=== PATIENT | female | born 1935 | race Asian ===

== ENCOUNTER 2019-08-06 10:17 | Inpatient (IN) | payer OTHER, MEDICAID ==
[~2019-08-06] VITALS: Ht 157.5 cm; Wt 64.9 kg
--- NOTE | 2019-08-06 10:19 | NUR ---
Patient ambulated to bed 10. RN evaluating patient at bedside.
--- NOTE | 2019-08-06 10:20 | NUR ---
PT BROUGHT IN BY SON FROM HOME WITH C/O GENERALIZED WEAKNESS X1-2 MONTHS. PER SON, PT EATING APPROPRIATELY, USES WALKER AT HOME TO AMBULATE, INCONTINENT. PT IS ALERT TO SELF AND CAN OCCASIONALLY TELL PLACE. [facility]CS 14-CONFUSED BUT FOLLOWS COMMANDS. PUPILS PERRL. ABDOMEN SOFT AND ROUND. DENIES PAIN OR N/V/D AT THIS TIME. BED IS DOWN, LOCKED, BED RAIL X 2 PMH- DEMENTIA, DM
--- NOTE | 2019-08-06 10:22 | NUR ---
Dr. Madrigal is evaluating the patient at bedside.
[2019-08-06 10:27] VITALS: BP 154/82
--- NOTE | 2019-08-06 10:30 | NUR ---
ACCU CHECK 222
--- NOTE | 2019-08-06 10:35 | NUR ---
ASSISTANT ATHLETIC TRAINER AT BEDSIDE FOR BLOOD DRAW AND EMT AT BEDSIDE FOR EKG
--- NOTE | 2019-08-06 10:43 | NUR ---
XRAY AT BEDSIDE
--- NOTE | 2019-08-06 10:52 | NUR ---
20 G IV INSERTED. PT TOLERATED WELL
--- NOTE | 2019-08-06 11:00 | NUR ---
Note undone in EDM - 08/06/19 at 1104 by [email or web address] PT BROUGHT IN BY SON FROM HOME WITH C/O GENERALIZED WEAKNESS X1-2 MONTHS. PER SON, PT EATING APPROPRIATELY, USES WALKER AT HOME TO AMBULATE, INCONTINENT. PT IS ALERT TO SELF AND CAN OCCASIONALLY TELL PLACE. [facility]CS 14-CONFUSED BUT FOLLOWS COMMANDS. PUPILS PERRL. ABDOMEN SOFT AND ROUND. DENIES PAIN OR N/V/D AT THIS TIME. BED IS DOWN, LOCKED, BED RAIL X 2 PMH- DEMENTIA, DM
[2019-08-06 11:01] LABS: BASOPHILS % (AUTO) 0.1 % (0.0-2.0); EOSINOPHILS % (AUTO) 0.5 % (0.0-4.0); HEMATOCRIT 39.6 % (36-48); HEMOGLOBIN 13.2 g/dL (12.0-16.0); LYMPHOCYTES # (AUTO) 1.5 K/uL (2.5-16.5); LYMPHOCYTES % (AUTO) 16.7 % (20.5-51.1); MEAN CORPUSCULAR HEMOGLOBIN 34 pg (27-31); MEAN CORPUSCULAR HGB CONC 33 g/dL (33-37); MEAN CORPUSCULAR VOLUME 102.1 fL (80-94); MONOCYTES # (AUTO) 0.5 K/uL (0.8-1.0); MONOCYTES % (AUTO) 5.9 % (1.7-9.3); NEUTROPHILS # (AUTO) 6.8 K/uL (1.8-7.7); NEUTROPHILS % (AUTO) 76.8 % (42.2-75.2); PLATELET COUNT (AUTO) 248 K/uL (140-450); RED BLOOD CELL COUNT(AUTO) 3.89 MIL/uL (4.20-5.40); RED CELL DISTRIBUTION WIDTH 12.9 % (11.6-13.7); WHITE BLOOD COUNT (AUTO) 8.8 K/uL (4.8-10.8)
--- NOTE | 2019-08-06 11:12 | NUR ---
# 14 FR Urinary catheter inserted utilizing sterile technique BY STUDENTS AND INSTRUCTOR. Immediate return of 25 ml YELLOW urine noted. Urine sample collected and sent to lab.
--- NOTE | 2019-08-06 11:19 | NUR ---
[facility]
[2019-08-06 11:21] LABS: ANION GAP 14.8 (8-16); CARBON DIOXIDE 24.7 mmol/L (21-32); CHLORIDE 104 mmol/L (98-107); CREATININE 0.8 mg/dL (0.6-1.3); GLUCOSE 233 mg/dL (74-106); POTASSIUM 3.5 mmol/L (3.5-5.1); SODIUM SERUM 140 mmol/L (136-145); UREA NITROGEN, BLOOD 10 mg/dL (7-18)
--- NOTE | 2019-08-06 11:22 | NUR ---
PTS SON IS LEAVING AND TAKING PTS WALKER WITH HIM, NUMBER IS [phone]
[2019-08-06 11:26] LABS: PROTHROMBIN TIME 9.5 secs (10.8-13.4)
[2019-08-06 11:27] LABS: ALBUMIN 3.5 g/dL (3.4-5.0); ASPARTATE AMINOTRANSFERASE 17 U/L (15-37); TOTAL BILIRUBIN 0.5 mg/dL (0.0-1.0)
--- NOTE | 2019-08-06 11:30 | NUR ---
PT RETURNED FROM CT
--- NOTE | 2019-08-06 11:31 | NUR ---
ORAL TEMP 98.0
--- NOTE | 2019-08-06 11:42 | NUR ---
FAMILY AT BEDSIDE
[2019-08-06] MEDS ORDERED: METF1TER PO (11:55)
[2019-08-06] MEDS ORDERED: CITA-71 PO (11:55)
[2019-08-06] MEDS ORDERED: DEXL60EC PO (11:55)
[2019-08-06] MEDS ORDERED: SERT50TA PO (11:55)
[2019-08-06 12:13] LABS: APPEARANCE,URINE CLOUDY (CLEAR); BILIRUBIN,URINE NEGATIVE (NEGATIVE); BLOOD, URINE NEGATIVE (NEGATIVE); COLOR,URINE YELLOW (YELLOW); LEUKOCYTE ESTERASE ,URINE NEGATIVE (NEGATIVE); NITRITE, URINE POSITIVE (NEGATIVE); UGLUCOSE 3+ (NEGATIVE)
[2019-08-06 12:33] LABS: RBC,URINE 0-5 /HPF (0-5)
--- NOTE | 2019-08-06 12:39 | NUR ---
VS STABLE. PT ALERT AND RESPONSIVE TO NAME.
--- NOTE | 2019-08-06 12:56 | NUR ---
NO WOUNDS PRESENT UPON EXAMINATION
[2019-08-06] MEDS ORDERED: cefTRIAXone 1,000 MG VIAL ONE (13:02)
--- NOTE | 2019-08-06 13:25 | NUR ---
BLOOD CULTURES DRAWN BEDSIDE AND ROCEPHIN STARTED
[2019-08-06] MEDS ORDERED: ACETAMINOPHEN 325 MG TAB PO PRN (13:30)
[2019-08-06] MEDS ORDERED: ONDANSETRON 4 MG/2 ML VIAL IM/IVP PRN (13:30)
[2019-08-06] MEDS ORDERED: HYDROcodone/APAP 5/325 MG 1 TAB TAB PO PRN (13:30)
[2019-08-06] MEDS ORDERED: DOCUSATE SODIUM 100 MG GELCAP PO PRN (13:30)
--- NOTE | 2019-08-06 13:40 | NUR ---
ACCU CHECK IS 185
--- NOTE | 2019-08-06 13:43 | NUR ---
LAB AT BEDSIDE
--- NOTE | 2019-08-06 13:44 | NUR ---
NADR AT THIS TIME. PAIN 0/10
--- NOTE | 2019-08-06 14:15 | NUR ---
PATIENT WHEELED ONTO FLOOR VIA GURNEY. PATIENT TRANSFERRED TO BED. VS WNL. IV SITE INTACT, ASYMPTOMATIC AND SALINE LOCKED. RESPIRATIONS EVEN AND UNLABORED ON ROOM AIR. PATIENT SPEAKS SAMI ONLY, UPDATED BOARD. MRSA SCREENING DONE. SAFETY PRECAUTIONS IN PLACE, CALL LIGHT WITHIN REACH, WILL CONTINUE TO MONITOR PATIENT.
--- NOTE | 2019-08-06 14:18 | NUR ---
Patient will be admitted to care of DR JOYCE. Admited to [facility]. Will go to room 110B. Belongings list completed. Report to PAYAL GUILLERMO.
[2019-08-06 14:19] LABS: MAGNESIUM 1.4 mg/dL (1.8-2.4); PHOSPHORUS 3.3 mg/dL (2.5-4.9); THYROID STIMULATING HORMONE 1.41 uIU/mL (0.34-3.74)
[2019-08-06 14:20] VITALS: BP 145/85
--- NOTE | 2019-08-06 15:30 | NUR ---
[employer] ANALYTIC PROGRAMMER USED, ASHLI [id number] SCHOOL PSYCHOLOGIST USED TO DO ASSESSMENT. CALLED PATIENT'S SON SO THEY CAN TALK. PATIENT VERBALIZED UNDERSTANDING ABOUT PLAN OF CARE. SAFETY PRECAUTIONS IN PLACE, CALL LIGHT WITHIN REACH, WILL CONTINUE TO MONITOR PATIENT.
--- NOTE | 2019-08-06 15:40 | NUR ---
PATIENT PULLED OUT IV. CATHETER INTACT. MINIMAL BLEEDING NOTED. INFORMED PATIENT OF NEED FOR NEW IV, PATIENT VERBALIZED UNDERSTANDING.
[2019-08-06] MEDS ORDERED: DEXTROSE 50% 50 ML SYR IVP PRN (15:45)
[2019-08-06 16:00] VITALS: BP 142/80
--- NOTE | 2019-08-06 16:40 | NUR ---
PATIENT ATTEMPTED TO GET OUT OF BED, USED [employer], MIN [id number] SHED HAND, INFORMED PATIENT FOR NEED TO STAY IN HOSPITAL BECAUSE OF INFECTION. PATIENT VERBALIZED UNDERSTANDING. PATIENT ALSO AGREED TO IV ACCESS. HOWEVER, AFTER SPEAKING TO AIRCRAFT INSTRUMENT MECHANIC, PATIENT AGAIN REFUSED.
[2019-08-06] MEDS: BLOOD GLUCOSE MONITORING 1 DEV DEV FS SCH ×2 (17:45→21:50)
--- NOTE | 2019-08-06 17:45 | NUR ---
DR BEGUM IN TO SEE THE PATIENT. DAUGHTER IN LAW FABIOLA AT BEDSIDE. IV ACCESS AND ANTIBIOTICS WERE REINFORCED TO PATIENT. SHE VERBALIZED UNDERSTANDING AND AGREED FOR IV INSERTION. VIJAY GUILLERMO INSERTED NEW IV, RIGHT HAND 24G, PATIENT TOLERATED IT WELL. WILL CONTINUE TO MONITOR PATIENT.
[2019-08-06] MEDS: NACL 0.9% 1,000 ML IV SCH (18:00)
[2019-08-06] MEDS: INSULIN LISPRO SLIDING SCALE 100 UNITS/ML VIAL SUBQ PRN ×2 (18:06→21:55)
--- NOTE | 2019-08-06 18:06 | NUR ---
BLOOD SUGAR 168, COVERAGE GIVEN. PATIENT TOLERATED IT WELL. DAUGHTER IN LAW FABIOLA AT BEDSIDE TO ASSIST. SAFETY PRECAUTIONS IN PLACE, CALL LIGHT WITHIN REACH, WILL CONTINUE TO MONITOR PATIENT.
--- NOTE | 2019-08-06 19:05 | NUR ---
INFORM DR. JASSO ABOUT PATIENT'S MAG LEVEL OF 1.4 AND DAUGHTER'S IN LAW WISH FOR PNA AND FLU VACCINE UPON DISCHARGE.
[2019-08-06] MEDS ORDERED: PNEUMOCOCCAL VACCINE 23 MCG/0.5 ML VIAL IMVAC SCH (19:25)
[2019-08-06] MEDS ORDERED: INFLUENZA VACCINE QUAD 0.5 ML SYR IMVAC PRN (19:25)
[2019-08-06] MEDS ORDERED: MAG SULF 2000 MG/WATER PREMIX 50 ML IV ONE (19:25)
--- NOTE | 2019-08-06 19:25 | NUR ---
REPORT GIVEN TO WELDER/INSTALLER NURSE AT BEDSIDE FOR CONTINUITY OF CARE. PATIENT IN STABLE CONDITION AND RESTING WITH EYES CLOSED.
--- NOTE | 2019-08-06 19:26 | NUR ---
RECEIVED BEDSIDE REPORT FROM AM SHIFT NURSE. PATIENT IS LYING IN BED AWAKE AND ALERT. NO SOB OR DISTRESS NOTED. ON ROOM AIR.IV ACCESS ON RIGHT HAND 24 GAUGE, PATENT AND INTACT. INITIAL ASSESSMENT DONE. BED IN LOW. SAFETY MEASURES IN PLACE. BOARD UPDATED. CALL LIGHT PLACED WITHIN PATIENT REACH. WILL CONTINUE TO MONITOR PATIENT.
--- NOTE | 2019-08-06 21:50 | NUR ---
BLOOD GLUCOSE RESULT OF 156 WITH 2 UNITS OF REGULAR INSULIN GIVEN PER SLIDING SCALE. WILL CONTINUE TO MONITOR PATIENT.
--- NOTE | 2019-08-06 23:40 | NUR ---
ROUNDS DONE. VISIBLE CHEST RISE AND FALL NOTED. SAFETY MEASURES IN PLACE. WILL CONTINUE TO MONITOR PATIENT.
--- NOTE | 2019-08-07 00:05 | NUR ---
VITAL SIGNS TAKEN AT THIS TIME. NO DISTRESS NOTED. WILL CONTINUE TO MONITOR PATIENT.
[2019-08-07 00:17] VITALS: BP 149/64
[2019-08-07] MEDS: MELATONIN 3 MG TAB PO PRN (00:48)
--- NOTE | 2019-08-07 02:28 | NUR ---
ROUNDS DONE. VISIBLE CHEST RISE AND FALL NOTED. CALL LIGHT WITHIN PATIENT REACH. WILL CONTINUE TO MONITOR PATIENT.
--- NOTE | 2019-08-07 05:16 | NUR ---
ROUNDS DONE. VISIBLE CHEST RISE AND FALL NOTED. WILL CONTINUE TO MONITOR PATIENT.
[2019-08-07] MEDS: NACL 0.9% 1,000 ML IV SCH ×2 (05:30→22:49)
--- NOTE | 2019-08-07 06:31 | NUR ---
BLOOD GLUCOSE RESULT OF 121. NO UNITS OF INSULIN COVERAGE NEEDED.
[2019-08-07] MEDS: PANTOPRAZOLE 40 MG TABEC PO SCH (06:55)
[2019-08-07] MEDS: BLOOD GLUCOSE MONITORING 1 DEV DEV FS SCH ×4 (06:59→20:22)
--- NOTE | 2019-08-07 07:17 | NUR ---
PT IN STABLE CONDITION. CALL LIGHT WITHIN PATIENT REACH. ENDORSED TO BRENDA FOR CONTINUITY OF CARE.
--- NOTE | 2019-08-07 07:19 | NUR ---
RECEIVED BEDSIDE REPORT FROM ACCOUNTING BOOKKEEPER NURSE FOR CONTINUITY OF CARE. PATIENT IS AWAKE AND RESTING ON BED AT THIS TIME. PATIENT IS AAOX1-2, SPEAKS NEPALI ONLY. RESPIRATION EVEN AND UNLABORED ON RA. FLACC 0. NO SIGNS OF DISTRESS NOTED. IV ON R HAND 24G, CLEAN AND INTACT, INFUSING PER MD ORDER. PATIENT IS INCONTINENT AND BEDREST AT THIS TIME DUE TO WEAKNESS. SKIN CLEAN AND DRY. SAFETY MEASURES IN PLACE. BED IN LOW POSITION AND CALL LIGHT WITHIN REACH. FALL RISK PROTOCOL IN PLACE AND BED ALARM ACTIVATED.
[2019-08-07] MEDS: metFORMIN 500 MG TAB PO SCH (07:55)
--- NOTE | 2019-08-07 07:59 | NUR ---
ADMINISTERED MEDS PER MD ORDER, PATIENT TOLERATED WELL. MEDS ED PROVIDED TO PATIENT AND DAUGHTER IN LAW MAHNAZ BY BEDSIDE. PATIENT AWAKE AND TALKING TO MAHNAZ BY BEDSIDE. NO SIGNS OF DISTRESS NOTED. SAFETY MEASURES IN PLACE. BED ALARM ACTIVATED.
[2019-08-07 08:00] VITALS: BP 128/62
[2019-08-07 08:23] LABS: CHOL/HDL RATIO 4.5 (1-4.5)
[2019-08-07] MEDS: CITALOPRAM 20 MG TAB PO SCH (08:52)
--- NOTE | 2019-08-07 08:52 | NUR ---
ADMINISTERED MED PER MD ORDER, PATIENT TOLERATED WELL. MED ED PROVIDED TO PATIENT AND REINFORCEMENT NEEDED. PATIENT AWAKE AND RESTING ON BED. FLACC 0. RESPIRATION EVEN AND UNLABORED ON RA. NO SIGNS OF DISTRESS NOTED. SAFETY MEASURES IN PLACE. BED IN LOW POSITION AND CALL LIGHT WITHIN REACH. FALL RISK PROTOCOL IN PLACE AND BED ALARM ACTIVATED. DEMONSTRATED TO PATIENT ON HOW TO USE THE CALL LIGHT FOR ANY ASSISTANCE AND PATIENT ABLE TO RETURN DEMONSTRATION.
--- NOTE | 2019-08-07 09:02 | NUR ---
PATIENT HAS BEEN SCREENED AND CATEGORIZED MODERATE NUTRITION RISK. PATIENT WILL BE SEEN WITHIN 3-5 DAYS OF ADMISSION. 08/09/19 08/11/[address]
--- NOTE | 2019-08-07 09:45 | NUR ---
PATIENT AWAKE AND RESTING ON BED AT THIS TIME. FLACC 0. NO SIGNS OF DISTRESS NOTED. SAFETY MEASURES IN PLACE. BED IN LOW POSITION AND CALL LIGHT WITHIN REACH. FALL RISK PROTOCOL IN PLACE AND BED ALARM ACTIVATED.
--- NOTE | 2019-08-07 11:50 | NUR ---
PATIENT IS RESTING ON BED AT THIS TIME. RESPIRATION EVEN AND UNLABORED ON RA. NO SIGNS OF DISTRESS NOTED. SAFETY MEASURES IN PLACE. BED IN LOW POSITION AND CALL LIGHT WITHIN REACH. BED ALARM ACTIVATED.
--- NOTE | 2019-08-07 12:37 | NUR ---
PATIENT ASLEEP IN BED. RESPONSIVE TO VERBAL AND TACTILE STIMULI. NO COMPLAINTS OR CONCERNS AT THIS TIME. RESPIRATIONS EVEN AND UNLABORED WITH NO SOB OR RESPIRATORY DISTRESS. SKIN WARM AND DRY TO TOUCH. SAFETY MEASURES: HOB ELEVATED, BED IN LOWEST POSITION, BED ALARM ACTIVATED, AND CALL LIGHT WITHIN REACH. WILL CONTINUE TO MONITOR.
--- NOTE | 2019-08-07 13:45 | NUR ---
PATIENT RESTING IN BED WITH THE TV ON. RESPIRATIONS EVEN AND UNLABORED WITH NO SOB OR RESPIRATIONS. FLACC 0. SAFETY MEASURES IN PLACE. BED IN LOW POSITION AND CALL LIGHT WITHIN REACH. BED ALARM ACTIVATED.
--- NOTE | 2019-08-07 14:30 | NUR ---
PATIENT ASLEEP IN BED. RESPONSIVE TO VERBAL AND TACTILE STIMULI. RESPIRATIONS EVEN AND UNLABORED WITH NO SOB OR RESPIRATORY DISTRESS. SAFETY MEASURES IN PLACE. WILL CONTINUE TO MONITOR.
--- NOTE | 2019-08-07 15:14 | NUR ---
DISCHARGE PLANNING: RECEIVED AN ORDER FOR SNF EVALUATION FOR PT. REFERRAL SENT TO [facility] [place] RE: [facility] PROGRAM. Addendum: 08/07/19 at 1711 by Erica Kauffman PER MICHAELA OF [facility] [place] THEIR [facility] LIAISON HAS ALREADY SPOKEN TO THE FAMILY AND THEY ARE ABLE TO ACCEPT THE PATIENT. DR. BEGUM MADE AWARE. PER DR. BEGUM DC PLAN WILL BE ON TUESDAY. MICHAELA CHAVIRA [facility] [place] MADE AWARE. Addendum: 08/08/19 at 1048 by Fidelia Romero CM DC PLANNING: PER ORDER PT SCHEDULE TO BE DISCHARGE ON TUESDAY TO [facility] [place] FOR PHYSICAL THERAPY AND SINCE PT IS SWEDISH SPEAKING ONLY PT WILL BE BENEFIT FROM THE [facility] PROGRAM. FAMILY AGREED TO GO TO [facility] [place] . SPOKE WITH MICHAELA FROM [facility] [place] AND ACCEPTED PATIENT. REGINO TO FOLLOW
--- NOTE | 2019-08-07 15:20 | NUR ---
PATIENT RESTING IN BED. ASSISTED SCHOOL PSYCHOLOGIST ASSISTANT WITH CHANGING AND REPOSITIONING PATIENT. RESPIRATIONS EVEN AND UNLABORED WITH NO SOB OR RESPIRATORY DISTRESS. SKIN WARM AND DRY. SAFETY MEASURES: HOB ELEVATED, BED IN LOWEST POSITION, BED ALARM ACTIVATED, AND CALL LIGHT WITHIN REACH.
[2019-08-07 16:00] VITALS: BP 149/66
--- NOTE | 2019-08-07 16:19 | NUR ---
Fashion Journalist Note: Per Grace from [facility] , patient has been accepted and can be transfer to their facility upon discharge, room 31B, accepting physician is Misael Montoya. I called and spoke with patient's son Andrea Espinal , I informed him patient has been accepted at [facility]. He verbalized understanding and thanked me for my assistance.
--- NOTE | 2019-08-07 17:33 | NUR ---
PATIENT PULLED OUT HER IV. ASSESSED IV SITE, NO BLEEDING. IV CANNULA INTACT. WILL RESTART NEW IV. EDUCATION PROVIDED TO PATIENT AND ORIENTED PATIENT. NO SIGNS OF DISTRESS NOTED. SAFETY MEASURES IN PLACE. BED ALARM ACTIVATED.
--- NOTE | 2019-08-07 17:58 | NUR ---
RESTARTED IV ON R HAND 24G, PATIENT TOLERATED WELL. SECURED WITH KERLIX AND CONTINUE WITH IVF. PATIENT IS EATING DINNER AT THIS TIME. NO SIGNS OF DISTRESS NOTED. EDUCATED PATIENT NOT TO REMOVE HER IV. SAFETY MEASURES IN PLACE. BED IN LOW POSITION AND CALL LIGHT WITHIN REACH. BED ALARM ACTIVATED.
--- NOTE | 2019-08-07 18:39 | NUR ---
PATIENT AWAKE AND RESTING ON BED AT THIS TIME. FLACC 0. RESPIRATION EVEN AND UNLABORED ON RA. NO SIGNS OF DISTRESS NOTED. SAFETY MEASURES IN PLACE. BED IN LOW POSITION AND CALL LIGHT WITHIN REACH. BED ALARM ACTIVATED.
--- NOTE | 2019-08-07 19:15 | NUR ---
ENDORSED PATIENT AT BEDSIDE TO RIVER EXPEDITION GUIDE NURSE FOR CONTINUITY OF CARE. PATIENT AWAKE AND HOUSE SUPERINTENDENT IS CHANGING AND CLEANING PATIENT. NO SIGNS OF DISTRESS NOTED. PATIENT IS IN STABLE CONDITION. SAFETY MEASURES IN PLACE.
--- NOTE | 2019-08-07 19:16 | NUR ---
RECEIVED BEDSIDE REPORT FROM DAY RN PATIENT IS AWAKE AND RESTING ON BED AT THIS TIME. PATIENT IS AAOX1-2, SPEAKS PORTUGUESE ONLY. RESPIRATION EVEN AND UNLABORED ON RA. FLACC 0. NO SIGNS OF DISTRESS NOTED. IV ON R HAND 24G, CLEAN AND INTACT, INFUSING PER MD ORDER. PATIENT IS INCONTINENT AND BEDREST AT THIS TIME DUE TO WEAKNESS. SKIN CLEAN AND DRY. SAFETY MEASURES IN PLACE. BED IN LOW POSITION AND CALL LIGHT WITHIN REACH. FALL RISK PROTOCOL IN PLACE AND BED ALARM ACTIVATED.
[2019-08-07] MEDS: INSULIN LISPRO SLIDING SCALE 100 UNITS/ML VIAL SUBQ PRN (20:22)
--- NOTE | 2019-08-07 20:22 | NUR ---
BLOOD SUGAR IS 165 COVERAGE PER ORDERS AND MARIO MEDICATION GIVEN. DAUGHTER IN LAW AT BEDSIDE. PT IS CALM. POC DISCUSSED WITH FAMILY AND PT. SAFETY MEASURES ARE IN PLACE.
--- NOTE | 2019-08-07 21:30 | NUR ---
ENDORSED TO MARI AND JEAN. PT IS IN STABLE CONDITION.
--- NOTE | 2019-08-07 22:00 | NUR ---
RECEIVED FROM ANOTHER RN IN BED. PT. SPEAKS MONGOLIAN WITH A LITTLE OF FAROESE. PT. WITH HISTORY DEMENTIA. NOTED TO BE PULING OUT HER IVF TUBING MOST OF TIMES. REFUSED TO LISTEN. FAMILY MEMBER IN HERE EARLIER THIS SHIFT. NEEDS WILL BE ANTICIPATED AND WILL BE MET. TOTAL CARE RT DEMENTIA. NEW IVF LINE INSERTED TO LEFT HAND #22. TOLERATED WELL . GOOD BLOOD RETURN.
[2019-08-08] VITALS: BP 151/67
[2019-08-08] MEDS: MELATONIN 3 MG TAB PO PRN ×2 (02:58→20:59)
--- NOTE | 2019-08-08 03:01 | NUR ---
PT. STILL AWAKE AND CUT HER IVF TUBING AT THIS TIME. REPLACED IVF TUBING. PROVIDED WITH APPLE JUICE . WILL BE CHECKED FREQUENTLY.
[2019-08-08] MEDS: BLOOD GLUCOSE MONITORING 1 DEV DEV FS SCH ×4 (05:10→21:01)
[2019-08-08] MEDS: PANTOPRAZOLE 40 MG TABEC PO SCH (05:12)
[2019-08-08] MEDS: INSULIN LISPRO SLIDING SCALE 100 UNITS/ML VIAL SUBQ PRN ×2 (05:14→20:30)
[2019-08-08 06:21] LABS: BASOPHILS % (AUTO) 0.4 % (0.0-2.0); EOSINOPHILS # (AUTO) 0.1 K/uL (0-0.4); EOSINOPHILS % (AUTO) 1.2 % (0.0-4.0); HEMATOCRIT 37.9 % (36-48); HEMOGLOBIN 12.6 g/dL (12.0-16.0); LYMPHOCYTES # (AUTO) 1.2 K/uL (2.5-16.5); LYMPHOCYTES % (AUTO) 28.1 % (20.5-51.1); MEAN CORPUSCULAR HEMOGLOBIN 34 pg (27-31); MEAN CORPUSCULAR HGB CONC 33 g/dL (33-37); MEAN CORPUSCULAR VOLUME 101.3 fL (80-94); MONOCYTES # (AUTO) 0.3 K/uL (0.8-1.0); MONOCYTES % (AUTO) 6.8 % (1.7-9.3); NEUTROPHILS # (AUTO) 2.8 K/uL (1.8-7.7); NEUTROPHILS % (AUTO) 63.5 % (42.2-75.2); PLATELET COUNT (AUTO) 239 K/uL (140-450); RED BLOOD CELL COUNT(AUTO) 3.74 MIL/uL (4.20-5.40); RED CELL DISTRIBUTION WIDTH 12.8 % (11.6-13.7); WHITE BLOOD COUNT (AUTO) 4.4 K/uL (4.8-10.8)
--- NOTE | 2019-08-08 06:23 | NUR ---
SLEEPING AT THIS TIME. WAKES UP EASILY WHEN TOUCHED. ABLE TO VERBALIZE WELL IN OCCITAN AND A LITTLE POLISH. NO RESTLESSNESS.
[2019-08-08 06:25] LABS: ANION GAP 13.5 (8-16); CARBON DIOXIDE 26.1 mmol/L (21-32); CHLORIDE 105 mmol/L (98-107); CREATININE 0.5 mg/dL (0.6-1.3); GLUCOSE 171 mg/dL (74-106); POTASSIUM 3.6 mmol/L (3.5-5.1); SODIUM SERUM 141 mmol/L (136-145); UREA NITROGEN, BLOOD 4 mg/dL (7-18)
--- NOTE | 2019-08-08 07:49 | NUR ---
RECEIVED BEDSIDE REPORT FROM TRACK INSPECTING SUPERVISOR RN. PATIENT IS AWAKE AND RESTING ON BED AT THIS TIME. PATIENT IS AAOX1-2, SPEAKS GEORGIAN BUT UNDERSTANDS SOME UKRAINIAN. RESPIRATIONS EVEN AND UNLABORED ON RA. FLACC 0. NO SIGNS OF DISTRESS NOTED. IV ON R HAND 24G, CLEAN AND INTACT, INFUSING PER MD ORDER. PATIENT IS INCONTINENT AND BEDREST AT THIS TIME DUE TO WEAKNESS. SKIN CLEAN AND DRY. SAFETY MEASURES IN PLACE. BED IN LOW POSITION AND CALL LIGHT WITHIN REACH. FALL RISK PROTOCOL IN PLACE AND BED ALARM ACTIVATED. WILL ROUND FREQUENTLY ON PT. BED IN LOW POSITION, CALL LIGHT WITHIN REACH.
[2019-08-08 08:00] VITALS: BP 162/77
--- NOTE | 2019-08-08 09:45 | NUR ---
ADMINISTERED MORNING MEDS TO PT. PT TOLERATED WELL. PT WILL NOT KEEP IV INSERTED SO SPOKE WITH SINCE PT HAS IV ROCEPHIN DUE. PER ORDERS, OK FOR PT TO NOT HAVE IV AND HE PRESCRIBED IM ROCEPHIN TO PT. PT TOLERATED WELL. ALL NEEDS MET. WILL CONTINUE TO ROUND FREQUENTLY ON PT.
[2019-08-08] MEDS: CITALOPRAM 20 MG TAB PO SCH (09:50)
[2019-08-08] MEDS: metFORMIN 500 MG TAB PO SCH (09:50)
[2019-08-08] MEDS ORDERED: cefTRIAXone 1,000 MG in LIDOCAINE MPF 1% 2.1 ML IM SCH (10:00)
--- NOTE | 2019-08-08 11:34 | NUR ---
PT RESTING IN BED. ALL NEEDS MET. WILL CONTINUE TO ROUND FREQUENTLY ON PT. BED IN LOW POSITION, CALL LIGHT WITHIN REACH.
--- NOTE | 2019-08-08 13:41 | NUR ---
PT RESTING IN BED. ALL NEEDS MET. WILL CONTINUE TO ROUND FREQUENTLY ON PT. BED IN LOW POSITION, CALL LIGHT WITHIN REACH.
[2019-08-08] MEDS: NACL 0.9% 1,000 ML IV SCH (15:29)
--- NOTE | 2019-08-08 15:36 | NUR ---
PT SLEEPING. ALL NEEDS MET. WILL CONTINUE TO ROUND FREQUENTLY ON PT. BED IN LOW POSITION, CALL LIGHT WITHIN REACH.
[2019-08-08 16:00] VITALS: BP 138/72
--- NOTE | 2019-08-08 19:25 | NUR ---
RECEIVED PT ON BED, AAOX2, SYRIAC SPEAKING BUT CAN UNDERSTAND A LITTLE SOUTH AFRICAN, PT CONFUSED SEC TO HX OF DEMENTIA, NO IV LINE DUE TO PT PULLING OFF IV LINE MULTIPLE TIMES, DRS ARE AWARE, DENIES PAIN, NO SOB NOTED, ON FALL PRECAUTION WITH SIDE RAILS UP AND BED ALARM ON, CALL LIGHT WITHIN REACH.
--- NOTE | 2019-08-08 19:49 | NUR ---
ENDORSED PT TO COMMERCIAL MAINTENANCE TECHNICIAN FOR CONTINUITY OF CARE. PT N STABLE CONDITION AT THIS TIME.
--- NOTE | 2019-08-08 20:00 | NUR ---
PT SEEN TRYING TO GET OOB MULTIPLE TIMES, WILL COMPLY ONLY FOR A SHORT WHILE THEN TRY TO GET OOB AGAIN, LEORA MOCTEZUMA PUT PT ON WHEELCHAIR AND BROUGHT CLOSE TO NURSES STATION FOR CLOSE MONITORING.
--- NOTE | 2019-08-08 21:00 | NUR ---
BLOOD SUGAR CHECKED WITH 258 RESULT, COVERAGE GIVEN, DUE MEDICATION ADMINISTERED, ALL NEEDS ATTENDED.
--- NOTE | 2019-08-08 21:40 | NUR ---
PT ASSISTED BACK TO BED AFTER RECEIVING MELATONIN PO PRN, SIDE RAILS UP AND BED ALARM ON, MONITORED CLOSELY.
[2019-08-09] VITALS: BP 116/63
--- NOTE | 2019-08-09 | NUR ---
PT SLEEPING, EASILY AROUSABLE, VITAL SIGNS STABLE, DENIES ANY PAIN, PROVIDED WITH APPLE JUICE X1, TOLERATED WELL, ON FALL PRECAUTION, FREQUENT CHECKS MADE, CONTINUE TO MONITOR CLOSELY.
--- NOTE | 2019-08-09 03:00 | NUR ---
PT SLEEPING, VISIBLE CHEST RISE AND FALL, NO DISTRESS NOTED, BED ALARM ON.
[2019-08-09] MEDS ORDERED: MAGNESIUM OXIDE 400 MG TAB ONE (12:23)
[2019-08-09] MEDS ORDERED: PNEUMOCOCCAL VACCINE 23 MCG/0.5 ML VIAL ONE (12:23)
[2019-08-10 20:11] LABS: CHLORIDE 103 mmol/L (98-107); CREATININE 0.6 mg/dL (0.6-1.3); GLUCOSE 180 mg/dL (74-106); MAGNESIUM 1.7 mg/dL (1.8-2.4); SODIUM SERUM 141 mmol/L (136-145); UREA NITROGEN, BLOOD 7 mg/dL (7-18)
[2019-08-11 10:37] LABS: BASOPHILS % (AUTO) 0.3 % (0.0-2.0); EOSINOPHILS # (AUTO) 0.1 K/uL (0-0.4); EOSINOPHILS % (AUTO) 1.5 % (0.0-4.0); HEMATOCRIT 39.2 % (36-48); HEMOGLOBIN 13.1 g/dL (12.0-16.0); LYMPHOCYTES # (AUTO) 1.4 K/uL (2.5-16.5); LYMPHOCYTES % (AUTO) 31.9 % (20.5-51.1); MEAN CORPUSCULAR HEMOGLOBIN 34 pg (27-31); MEAN CORPUSCULAR HGB CONC 33 g/dL (33-37); MEAN CORPUSCULAR VOLUME 101.5 fL (80-94); MONOCYTES # (AUTO) 0.3 K/uL (0.8-1.0); MONOCYTES % (AUTO) 7.9 % (1.7-9.3); NEUTROPHILS # (AUTO) 2.5 K/uL (1.8-7.7); NEUTROPHILS % (AUTO) 58.4 % (42.2-75.2); PLATELET COUNT (AUTO) 257 K/uL (140-450); RED BLOOD CELL COUNT(AUTO) 3.86 MIL/uL (4.20-5.40); WHITE BLOOD COUNT (AUTO) 4.4 K/uL (4.8-10.8)
== END 2019-08-09 14:05 | disposition home or self-care (01) | DRG 71 ==
LOC: MED 10:17 → MTU 13:29
PROVIDERS: ADMIT General Practice; ATTEND General Practice
DX: G93.41 Metabolic encephalopathy (principal); D68.59 Other primary thrombophilia; F03.90 Unspecified dementia, unspecified severity, without behavioral disturbance, psychotic disturbance, mood disturbance, and anxiety; F32.9 Major depressive disorder, single episode, unspecified; D72.819 Decreased white blood cell count, unspecified; I10 Essential (primary) hypertension; E78.5 Hyperlipidemia, unspecified; E11.9 Type 2 diabetes mellitus without complications; K21.9 Gastro-esophageal reflux disease without esophagitis; Z79.899 Other long term (current) drug therapy
CPT/HCPCS: 36415; 70450; 71045; 80048; 80053; 81001; 82140; 82948; 83036; 83605; 83735; 83880; 84100; 84436; 84443; 84484; 85025; 85610; 85730; 87040; 87081; 90732; 93005; 96365; 97110; 97112; 97116; 97161-GP; 97530; 99285; J0696; J1644; J1815; J2001; J3475; J7060; Q0092

== ENCOUNTER 2019-08-19 13:48 | Inpatient (IN) | payer OTHER, MEDICAID ==
[~2019-08-19] VITALS: Ht 157.5 cm; Wt 58.1 kg
[~2019-08-19 13:48] MED LIST: CITA-71 PO; DEXL60EC PO; METF1TER PO; SERT50TA PO
[2019-08-19 13:49] VITALS: BP 132/62
--- NOTE | 2019-08-19 14:08 | NUR ---
GREGORY [place] [facility] HIP PAIN S/P FALL LAST NIGHT UNKNOWN TIME. SNF STAFF FOUND PT LEANING OVER BED. PT WAS ABLE TO TRANSFER W/ 2-PERSON ASSIST FROM [facility] TO [facility]. TRANSFERRED HERE FOR CT SCAN FOR EVAL OF POSSIBLE LT HIP FX. USED [employer] [id number] TO TRANSLATE, PT IS TURKMEN SPEAKING ONLY. PT STATES SHE DID FALL LAST NIGHT, DENIES HITTING HEAD, STATES DID LOSE CONSCIOUSNESS FOR UNK LENGTH OF TIME BUT STATES "I WOKE UP RIGHT AFTER". DENIES PAIN AT THIS TIME. DENIES ANY DISCOMFORT. OFFERED TO CALL FAMILY/FRIEND, PT REFUSED AT THIS TIME. HX- HTN, HF, DEMENTIA, DM, MET ENCEPHALOPATHY, GERD, DEPRESSION.
--- NOTE | 2019-08-19 14:25 | NUR ---
SPO[place] [facility] INFORM HER THAT PT POLST IS NOT SIGNED BY A PHYSICIAN, THEREFORE AT THIS TIME WE ARE OBLIGATED TO TREAT HER A FULL CODE AND PROVIDE LIFE SAVING INTERVENTION IN THE EVENT THAT IT IS NEEDED. MAYRA STATES THAT SHE UNDERSTANDS AND WILL CONTACT THE PATIENTS PCP IN THE MEANTIME.
--- NOTE | 2019-08-19 14:28 | NUR ---
[facility]
[2019-08-19] MEDS ORDERED: NACL 0.9% 500 ML IV SCH (14:30)
--- NOTE | 2019-08-19 15:15 | NUR ---
PT IS REFUSING CHEST XRAY, DR. MELGAR AWARE
--- NOTE | 2019-08-19 15:15 | NUR ---
Note danay in EDM - 08/19/19 at 1520 by [email or web address] # 16 FR IN/OUT catheter utilizing sterile technique. Immediate return of 100 ml CLEAR YELLOW urine noted. Urine sample collected and sent to lab. Pt tolerated procedure WELL.
[2019-08-19 15:27] LABS: BASOPHILS % (AUTO) 0.3 % (0.0-2.0); EOSINOPHILS % (AUTO) 0.9 % (0.0-4.0); HEMATOCRIT 40.5 % (36-48); HEMOGLOBIN 13.3 g/dL (12.0-16.0); LYMPHOCYTES # (AUTO) 1.8 K/uL (2.5-16.5); LYMPHOCYTES % (AUTO) 33.5 % (20.5-51.1); MEAN CORPUSCULAR HEMOGLOBIN 33 pg (27-31); MEAN CORPUSCULAR HGB CONC 33 g/dL (33-37); MEAN CORPUSCULAR VOLUME 102.1 fL (80-94); MONOCYTES # (AUTO) 0.3 K/uL (0.8-1.0); MONOCYTES % (AUTO) 6.1 % (1.7-9.3); NEUTROPHILS # (AUTO) 3.2 K/uL (1.8-7.7); NEUTROPHILS % (AUTO) 59.2 % (42.2-75.2); PLATELET COUNT (AUTO) 311 K/uL (140-450); RED BLOOD CELL COUNT(AUTO) 3.97 MIL/uL (4.20-5.40); WHITE BLOOD COUNT (AUTO) 5.5 K/uL (4.8-10.8)
[2019-08-19 15:39] LABS: APPEARANCE,URINE CLEAR (CLEAR); BILIRUBIN,URINE NEGATIVE (NEGATIVE); BLOOD, URINE NEGATIVE (NEGATIVE); COLOR,URINE YELLOW (YELLOW); LEUKOCYTE ESTERASE ,URINE NEGATIVE (NEGATIVE); NITRITE, URINE NEGATIVE (NEGATIVE); PH,URINE 5.5 (5.0-9.0); UGLUCOSE 3+ (NEGATIVE)
[2019-08-19 15:56] LABS: ALBUMIN 3.5 g/dL (3.4-5.0); ANION GAP 12.9 (8-16); ASPARTATE AMINOTRANSFERASE 22 U/L (15-37); CARBON DIOXIDE 28.2 mmol/L (21-32); CHLORIDE 101 mmol/L (98-107); CREATININE 0.6 mg/dL (0.6-1.3); GLUCOSE 305 mg/dL (74-106); POTASSIUM 4.1 mmol/L (3.5-5.1); SODIUM SERUM 138 mmol/L (136-145); TOTAL BILIRUBIN 0.3 mg/dL (0.0-1.0); UREA NITROGEN, BLOOD 13 mg/dL (7-18)
--- NOTE | 2019-08-19 16:20 | NUR ---
PT RESTING IN BED WITH EYES CLOSED, AROUSABLE TO VERBAL STIMULI.
[2019-08-19 16:31] LABS: PROTHROMBIN TIME 8.7 secs (10.8-13.4)
[2019-08-19] MEDS ORDERED: INSULIN REGULAR, HUMAN 100 UNIT/ML VIAL IV ONE (17:15)
--- NOTE | 2019-08-19 17:31 | NUR ---
PT WILL RETURN TO [facility]. TRANSPORT WILL ARRIVE AROUND 1030 PM
--- NOTE | 2019-08-19 17:57 | NUR ---
SPOKE WITH KIMBERLYN FROM [facility] AND GAVE REPORT FOR THE PATIENT TO RETURN TO THE FACILITY.
--- NOTE | 2019-08-19 18:29 | NUR ---
ORDERED PT A DINNER TRAY, SHE IS NOT HUNGRY RIGHT NOW
--- NOTE | 2019-08-19 19:27 | NUR ---
RECEIVED REPORT FROM EAGLE PATTON.
--- NOTE | 2019-08-19 20:20 | NUR ---
Note danay in EDM - 08/20/19 at 0443 by AREN Patient will be admitted to care of [facility]. Admited to TELE Will go to room. Belongings list completed. Report to EAGLE KAPADIA.
--- NOTE | 2019-08-19 20:20 | NUR ---
Patient will be admitted to care of [facility]. Admited to TELE Will go to room 108 A. [facility]s list completed. Report to . Addendum: 08/20/19 at 0445 by AREN REPORT GIVEN TO EAGLE KAPADIA.
--- NOTE | 2019-08-19 20:35 | NUR ---
PT FOUND ON FLOOR, WHEN I ENTER THE ROOM THE PT WAS ON THE FLOOR IN FRONT OF THE HOSPITAL BED IN THE [place] POSTION, PER ED PHYSICAN HE ADVISED HOSPITAL STAFF TO RETURN PT TO THE BED TO BE FURTHER ASSESED AND EVALUATED.
--- NOTE | 2019-08-19 20:36 | NUR ---
PATIENT A/O X1 TO NAME AND FOLLOWS COMMANDS. PERRLA +3. NOTED BUMP ON RIGHT SIDE OF HEAD. ERMD MADE AWARE.
[2019-08-19] MEDS ORDERED: ONDANSETRON 4 MG/2 ML VIAL IM/IVP PRN (21:05)
[2019-08-19] MEDS ORDERED: MORPHINE SULFATE 2 MG/ML SYR IVP PRN (21:05)
[2019-08-19] MEDS ORDERED: DOCUSATE SODIUM 100 MG GELCAP PO PRN (21:05)
[2019-08-19] MEDS ORDERED: HYDROcodone/APAP 5/325 MG 1 TAB TAB PO PRN (21:05)
[2019-08-19] MEDS ORDERED: ACETAMINOPHEN 325 MG TAB PO PRN (21:05)
[2019-08-19] MEDS ORDERED: ZOLPIDEM 5 MG TAB PO PRN (21:05)
[2019-08-19] MEDS ORDERED: LORazepam 2 MG/ML VIAL IM/IVP PRN (21:05)
[2019-08-19] MEDS ORDERED: DEXTROSE 50% 50 ML SYR IVP PRN (21:10)
--- NOTE | 2019-08-19 21:18 | NUR ---
PT RETURN FROM CT
--- NOTE | 2019-08-19 21:19 | NUR ---
PATIENT BACK FROM CT.
[2019-08-19 21:48] LABS: BARBITURATE, URINE NEG. ng/ml (NEG <=200); CANNABINOID, URINE NEG. ng/mL (NEG <=50); OPIATE, URINE NEG. ng/mL (NEG <=2000); PHENCYCLIDINE SCREEN,URINE NEG. ng/mL (NEG <=25)
[2019-08-19 21:50] LABS: PROTHROMBIN TIME 8.7 secs (10.8-13.4)
[2019-08-19 21:57] LABS: CHOL/HDL RATIO 5.4 (1-4.5); THYROID STIMULATING HORMONE 1.48 uIU/mL (0.34-3.74)
[2019-08-19 21:57] LABS: BENZODIAZEPINE, URINE NEG. ng/mL (NEG <=200); COCAINE, URINE NEG. ng/mL (NEG <=300)
--- NOTE | 2019-08-19 22:10 | NUR ---
RECEIVED BEDSIDE REPORT FROM ER NURSE. PATIENT IS AWAKE AND COOPERATIVE. ADMITTING DIAGNOSIS SP FALL/CLOSED HEAD INJURY. RESPIRATION EVEN UNLABORED ON ROOM AIR. SKIN IS WARM AND DRY. REDNESS AND EXCORIATION NOTED IN THE BUTTOCKS AREA. IV PATENT AND INTACT. HEART RATE REGULAR. S1&S2 NOTED. LUNGS SOUNDS CLEAR ON AUSCULTATION. BOWEL SOUNDS PRESENT IN ALL QUADRANTS. ABDOMEN SOFT AND NON-TENDER. PLAN OF CARE UP DATED. ALL SAFETY MEASURES IN PLACE. ORIENT PATIENT TO THE ROOM, STAFF, AND CALL LIGHT. BED IS AT LOW POSITION. CALL LIGHT WITHIN REACH. WILL CONTINUE TO MONITOR.
[2019-08-19 22:30] VITALS: BP 155/69
[2019-08-19] MEDS: NACL 0.9% 1,000 ML IV SCH (22:37)
--- NOTE | 2019-08-19 23:00 | NUR ---
USED [employer] TO OBTAINED INFORMATION FROM THE PATIENT. LEMON PICKER CODE NUMBER [id number].
[2019-08-20] VITALS: BP 172/67
--- NOTE | 2019-08-20 00:10 | NUR ---
PATIENT BP 172/67 HR 67 INFORMED DOCTOR. AWAITING FOR ORDERS.
[2019-08-20] MEDS ORDERED: hydrALAZINE 20 MG/ML VIAL IVP SCH (00:50)
--- NOTE | 2019-08-20 01:00 | NUR ---
PATIENT PULLED HER IV OUT. NO ACTIVE BLEEDING SEEN. CANNULA INTACT. INSERTED A NEW ONE TO THE RIGHT HAND 22G WRAPPED WITH KIRLEX. WILL CONTINUE TO MONITOR.
--- NOTE | 2019-08-20 01:37 | NUR ---
PATIENT GAVE PRN HYDRALAZINE PER ORDER. WILL CONTINUE TO MONITOR.
--- NOTE | 2019-08-20 02:50 | NUR ---
PATIENT REFUSED HIP XRAY.
[2019-08-20] MEDS ORDERED: LISINOPRIL 5 MG TAB PO SCH ×2 (03:00→09:00)
[2019-08-20 04:00] VITALS: BP 134/55
[2019-08-20] MEDS ORDERED: Z-GUARD PASTE TP SCH (04:05)
--- NOTE | 2019-08-20 04:10 | NUR ---
VITALS WERE TAKEN PATIENT IN STABLE CONDITION. NO DISTRESS NOTED. WILL CONTINUE TO MONITOR.
--- NOTE | 2019-08-20 05:00 | NUR ---
USED [employer] MUSHROOM PACKER # [id number] TO EDUCATE PATIENT REGARDING HIP XRAY. PATIENT STILL REFUSED. SHE SAID SHE'S NOT IN PAIN AND DOES NOT NEED IT. EDUCATED PATIENT AGAIN X2 STILL REFUSED. WILL NOTIFY DOCTOR.
--- NOTE | 2019-08-20 05:11 | NUR ---
PATIENT PULLED OUT HER IV AGAIN. NO ACTIVE BLEEDING NOTE. CANNULA IV INTACT. WILL INSERT A NEW ONE
--- NOTE | 2019-08-20 05:27 | NUR ---
INSERTED NEW IV TO THE RIGHT HAND 22 G. WILL CONTINUE TO MONITOR.
[2019-08-20] MEDS ORDERED: METO50TE2 PO (05:30)
[2019-08-20] MEDS ORDERED: SLIDE SUBQ (05:31)
[2019-08-20] MEDS ORDERED: MEDICATION REC. PHARMACY CONS. 1 EA MISC MC PRN (06:40)
[2019-08-20] MEDS: BLOOD GLUCOSE MONITORING 1 DEV DEV FS SCH ×4 (06:50→21:56)
[2019-08-20] MEDS: INSULIN LISPRO SLIDING SCALE 100 UNITS/ML VIAL SUBQ PRN ×4 (06:51→22:09)
--- NOTE | 2019-08-20 07:15 | NUR ---
RECEIVED PT BEDSIDE REPORT FROM SKIP HOIST ENGINEER NURSE, PT IS AWAKE, NO S/S OF DISTRESS, ON ROOM AIR, SKIN INTACT ASIDE FROM EXCORIATION ON THE SACRUM. IV SITE IS ON THE L HAND 22 G, INFUSING NS 60 ML/HR. FALL PRECAUTIONS IN PLACE. CALL LIGHT IS WITHIN REACH. WILL CONTINUE TO MONITOR.
--- NOTE | 2019-08-20 07:28 | NUR ---
ENDORSED PATIENT TO DAY SHIFT NURSE. PATIENT IN STABLE CONDITION.
[2019-08-20] MEDS ORDERED: INSULIN REGULAR, HUMAN 100 UNIT/ML VIAL SUBQ SCH (07:30)
--- NOTE | 2019-08-20 07:30 | NUR ---
DR PEREZ IS AWARE PT KEEPS TAKING OFF TELEMETRY LEADS, HE SAID HE WILL DOWNGRADE PT TO [employer]-SURG
[2019-08-20 08:00] VITALS: BP 143/56
--- NOTE | 2019-08-20 08:45 | NUR ---
DC PLANNING 83 YRS OLD FEMALE PATIENT [place] [facility] [place] OF [place]/P F[place], CLOSED HEAD INJURY. PT HAS A HX OF DEMENTIA DM AND HTN . PT SPEAKS ONLY POLISH AND USES WALKER AT THE BASELINE. CT HEAD (-) LEFT HIP X-RAY (-) CT ABD/PELVIS COMPRESSION DEFORMITY AT [id number] IVF CONTINUED HOME MEDS AND PAIN MEDICATION. DC PLAN [place] [facility] [place] TO FOLLOW. Addendum: 08/21/19 at 1517 by Erica Kauffman LATE ENTRY: RECEIVED AN ORDER FOR [place] [facility] [place] [facility] [place] ABLE TO SPEAK TO YASMIN [place] [facility] [place] SHE STATED [place]IENT WILL GO TO ROOM 28B UNDER DR. SOUMYA MOYA. CONTACTED [place] JOSE HUTCHINS AT [phone] [id number] REGARDING TRANSPORT. SHE STATED NO NEED FOR AUTH. SHE PROVIDED ME WITH CALL A CAR [phone], ABLE TO SPEAK TO OMAR [employer]IR OR BEAUTY SALON ASSISTANT. SHE TRANSFERRED ME TO [facility] AND GOT TRANSFERRED AGAIN TO [facility]. HE STATED AUTHORIZATION IS NEEDED DUE TO WE ARE IN [facility]. CONTACTED REGINO HUTCHINS, SHE STATED SHE IS ON HER LUNCH BREAK AT THIS TIME AND WILL GIVE ME A CALL BACK. Addendum: 08/21/19 at 1625 by Erica Kauffman RECEIVED A CALL BACK FROM REGINO HUTCHINS OF [facility], SHE STATED NO NEED FOR TRANSPORT AUTH. CONTACTED CALL A CAR AGAIN, GOT TRANSFERRED TWICE AND PLACED ON HOLD AND ABLE TO SPEAK TO YENI, SHE STATED HEARING AID ASSISTANT WILL BE AT 1730 BUT THE RESEARCH LABORATORY MANAGER WILL CALL TO CONFIRM. PRIMARY RN MADE AWARE.
[2019-08-20] MEDS: ATORVASTATIN 20 MG TAB PO SCH (08:55)
[2019-08-20] MEDS: CITALOPRAM 20 MG TAB PO SCH (08:55)
[2019-08-20] MEDS: SERTRALINE 50 MG TAB PO SCH (08:55)
[2019-08-20] MEDS: LISINOPRIL 5 MG TAB PO SCH (08:56)
[2019-08-20] MEDS: METOPROLOL SUCCINATE 50 MG TABER PO SCH (08:56)
[2019-08-20] MEDS: PANTOPRAZOLE 40 MG TABEC PO SCH (08:56)
[2019-08-20] MEDS ORDERED: SITAGLIPTIN PHOS PO SCH (09:00)
[2019-08-20] MEDS ORDERED: METFORMIN HCL PO SCH (09:00)
[2019-08-20] MEDS ORDERED: CITALOPRAM 20 MG TAB PO SCH (09:00)
[2019-08-20] MEDS ORDERED: [UNRECOGNIZED DRUG - OTHER] PO SCH (09:00)
--- NOTE | 2019-08-20 09:01 | NUR ---
AM MEDS ADMINISTERED, PT TOLERATED WELL
--- NOTE | 2019-08-20 09:14 | NUR ---
PATIENT HAS BEEN SCREENED AND CATEGORIZED HIGH NUTRITION RISK. PATIENT WILL BE SEEN WITHIN 3-5 DAYS OF ADMISSION. 08/22/19-08/24/[address]
--- NOTE | 2019-08-20 11:15 | NUR ---
PT KEEPS PULLING ON HER IV, THE IV LINE BROKE AND BLED OVER HER SHEETS. PT WAS CLEANED UP AND IV WAS FIXED. I TALKED TO DR PEPPER ABOUT POSSIBLY USING SOFT MITTEN RESTRAINTS, DR PEPPER WILL PUT IN ORDER.
--- NOTE | 2019-08-20 12:55 | NUR ---
Motor Vehicle Inspector Assessment/Discharge Plan High Risk DC Screen Yes Name: Andrea Espinal Home Relationship: son Pre-Admission Living Arrangements: SNF Prior ADL Needs Assistance Healthcare Decision Maker: Next of Kin Other: Andrea Espinal Advance Directive No Physician Orders for Life Sustaining Treatment Form No - incomplete Tentative Discharge Plan Summary: Patient is an 83 year old female, admitted for S/P fall and closed head injury. Per Burak from [facility] , patient is on a 7 day bed hold and is one of their nursing home patients. She stated patient does not have an Advance Directive and her son Andrea Huber is her health care decision maker. I called and spoke with Andrea, he stated he would like patient to return to [facility] upon discharge. Motor Vehicle Inspector and/or Chief Radiology will follow up as needed. Signature: ELA Keith Date: Aug 20, 2019
--- NOTE | 2019-08-20 13:10 | NUR ---
PT IS RESTLESS, GETTING UP OUT OF BED, REFUSING TO GO BACK TO BED, AND KEEPS TAKING OFF HER MITTEN RESTRAINTS. PT WAS OFFERED A BEDSIDE COMMODE WHICH SHE ACCEPTED
[2019-08-20] MEDS: NACL 0.9% 1,000 ML IV SCH (14:29)
--- NOTE | 2019-08-20 14:33 | NUR ---
*S.T. BEDSIDE SWALLOW EVAL COMPLETED* See report. Pt presents w/ adequate oropharyngeal swallow function for textures given. Pt adamantly refused P.O. trials of solids. Pt unable to feed self during eval due to B soft wrist restraints in place. No overt s/s aspiration observed. Recommend: 1) Continue regular texture diet, thin liquids. 2) P.O. meds okay whole one at a time as tolerated. 3) Nsg to assist if pt is in soft wrist restraints. No further tx indicated at this time as pt appears to be functioning at her baseline per SNF records in chart. DC to nsg care. Endorsed to EAGLE oCnway. Time [id number]
[2019-08-20 16:00] VITALS: BP 129/63
--- NOTE | 2019-08-20 16:00 | NUR ---
RECEIVED REPORT FROM SARITHA. PT IN BED AWAKE AAOX2, NO DISTRESS NOTED. IV IN PLACE LEFT AC PATENT ASYMPTOMATIC AND INFUSING PER ORDER. RESPIRATIONS EVEN AND UNLABORED ON ROOM AIR, CLEAR BREATH SOUNDS. PT ON RESTRAINTS FOR SAFETY. BED IN LOW POSITION. SAFETY MEASURES IN PLACE. CALL LIGHT WITHIN REACH. WILL CONTINUE TO MONITOR.
--- NOTE | 2019-08-20 18:05 | NUR ---
PTS FAMILY MEMBER AT THE BEDSIDE VERIFIED THAT PT IS UP TO DATE WITH PNA AND FLU VACCINATION. RECEIVED AT [facility] 1 WEEK AGO. SAFETY MEASURES IN PLACE. WILL CONTINUE TO MONITOR.
--- NOTE | 2019-08-20 19:15 | NUR ---
PT ENDORSED TO NIGHT NURSE FOR CONTINUITY OF CARE.
--- NOTE | 2019-08-20 19:15 | NUR ---
RECIVED PT. AAOX2 - POOR HISTORIAN , CAN FOLLOW SIMPLE COMMANDS . RELATIVES ON BEDSIDE . IV SITE INTACT AND PATENT . ON SOFT WRIST RESTRAINT - THERE IS OLD BRUISES ON SURFACE OF THE RIGHT HAND. DENIES ANY PAIN - FLACC 0 , ON SAFETY /FALL PRECAUTION PROTOCOL- BED ALARM ON . PLAN OF CARE DISCUSSED BUT POOR UNDERSTSNADING DUE TO MENTAL STATUS AND LANGUAGE BARRIER - CALL LIGHT WITHIN REACH . WILL CONT. TO MONITOR.
[2019-08-20] MEDS ORDERED: MELATONIN 3 MG TAB PO PRN (21:00)
[2019-08-20] MEDS ORDERED: INSULIN LANTUS 100 UNITS/ML 10 ML VIAL SUBQ SCH (21:00)
--- NOTE | 2019-08-20 22:30 | NUR ---
FED BY MARKETING FINANCE MANAGER EMMA - TOLERATED.
[2019-08-21] VITALS: BP 112/60
--- NOTE | 2019-08-21 02:00 | NUR ---
MADE R0UND , NO S/ SXS OF ACUTE DISTRESS NOTED AT THIS TIME
--- NOTE | 2019-08-21 04:00 | NUR ---
MADE ROUNDS . RESP . EVEN AND UNLABORED . - CALL LIGHT WITHIN REACH
--- NOTE | 2019-08-21 06:00 | NUR ---
MADE ROUNDS . FULLY SOAKED DIAPER - GOOD U.O. SLEEPY - AWAKEABLE . NO S/SX OF ACUTE DISTRESS NOTED AT THIS TIME.
[2019-08-21] MEDS: NACL 0.9% 1,000 ML IV SCH (06:13)
[2019-08-21] MEDS: BLOOD GLUCOSE MONITORING 1 DEV DEV FS SCH ×3 (06:13→16:52)
[2019-08-21] MEDS: INSULIN LISPRO SLIDING SCALE 100 UNITS/ML VIAL SUBQ PRN ×2 (06:19→11:23)
--- NOTE | 2019-08-21 07:30 | NUR ---
ENDORSED TO AM SHIFT . AWAKEABLE . WITH GOOD CONDITION. WITH LATEST HGT 212.
--- NOTE | 2019-08-21 07:35 | NUR ---
RECEIVED PT FROM RN SHIFT MGR NURSE, ANTONY, PT IS AWAKE, ON SOFT WRIST RESTRAINT, CALM, IV LINE ON THE LEFT HAND G. 22 WITH NS INFUSING AT 60ML/HR, ,NO SIGN OF DISTRESS NOTED AND WILL CONTINUE TO BE MONITORED.
[2019-08-21 08:00] VITALS: BP 119/49
[2019-08-21] MEDS: ATORVASTATIN 20 MG TAB PO SCH (10:56)
[2019-08-21] MEDS: METOPROLOL SUCCINATE 50 MG TABER PO SCH (10:57)
[2019-08-21] MEDS: SERTRALINE 50 MG TAB PO SCH (10:57)
[2019-08-21] MEDS: CITALOPRAM 20 MG TAB PO SCH (10:58)
[2019-08-21] MEDS: PANTOPRAZOLE 40 MG TABEC PO SCH (10:59)
[2019-08-21] MEDS: LISINOPRIL 5 MG TAB PO SCH (10:59)
--- NOTE | 2019-08-21 11:23 | NUR ---
BLOOD GLUCOSE CHECK DONE TO PT AND RESULT IS 203 AND INSULIN 4 UNITS WAS GIVEN ON THE RT UA. WILL MONITOR PT.
[2019-08-21 11:46] LABS: BASOPHILS % (AUTO) 0.6 % (0.0-2.0); EOSINOPHILS # (AUTO) 0.1 K/uL (0-0.4); EOSINOPHILS % (AUTO) 1.7 % (0.0-4.0); HEMATOCRIT 41.4 % (36-48); HEMOGLOBIN 13.6 g/dL (12.0-16.0); LYMPHOCYTES # (AUTO) 1.5 K/uL (2.5-16.5); LYMPHOCYTES % (AUTO) 25.5 % (20.5-51.1); MEAN CORPUSCULAR HEMOGLOBIN 33 pg (27-31); MEAN CORPUSCULAR HGB CONC 33 g/dL (33-37); MEAN CORPUSCULAR VOLUME 101.6 fL (80-94); MONOCYTES # (AUTO) 0.3 K/uL (0.8-1.0); NEUTROPHILS % (AUTO) 67.2 % (42.2-75.2); PLATELET COUNT (AUTO) 290 K/uL (140-450); RED BLOOD CELL COUNT(AUTO) 4.07 MIL/uL (4.20-5.40); RED CELL DISTRIBUTION WIDTH 13.3 % (11.6-13.7)
--- NOTE | 2019-08-21 12:00 | NUR ---
PT IS LYING ON THE BED, RESTING, CALM, RESTRAINT WAS NOTED TO BE COOPERATIVE AND NOT REMOVING IV LINES ANYMORE, RESTRAINT WAS NOT RENEWED DUE TO PT'S CALM BEHAVIOR.
[2019-08-21 12:43] LABS: ANION GAP 13.4 (8-16); CARBON DIOXIDE 27.7 mmol/L (21-32); CHLORIDE 104 mmol/L (98-107); CREATININE 0.7 mg/dL (0.6-1.3); GLUCOSE 207 mg/dL (74-106); POTASSIUM 4.1 mmol/L (3.5-5.1); SODIUM SERUM 141 mmol/L (136-145); UREA NITROGEN, BLOOD 10 mg/dL (7-18)
[2019-08-21 13:15] LABS: MAGNESIUM 1.9 mg/dL (1.8-2.4)
--- NOTE | 2019-08-21 16:42 | NUR ---
CALLED [facility] AT [phone] AND GAVE REPORT TO EAGLE COKER REGARDING THE PT, INFORMED EAGLE MENDEZ THAT PT WILL BE PLACED IN RM 28-B UNDER DR. MOYA AND EAGLE MENDEZ VERBALIZED UNDERSTANDING.
--- NOTE | 2019-08-21 17:10 | NUR ---
CALLED THE PT'S SON, ONEAL LUJAN AT [phone] AND INFORMED THAT PT WILL BE TRANSFERRED BACK [place] [facility] [place] AND SON VERBALIZED UNDERSTANDING.
--- NOTE | 2019-08-21 18:15 | NUR ---
DISCHARGED PT TO [facility] [place] VIA TRANSPORT, IV LINE AND ARM BANDS REMOVED, DISCHARGED INSTRUCTIONS AND TEACHINBGS GIVEN TO PT . PT IS STABLE AT THIS TIME.
[2019-08-21 18:46] VITALS: BP 119/49
== END 2019-08-21 18:15 | DRG 556 ==
LOC: MED 13:48 → MTU 21:05
PROVIDERS: ADMIT General Practice; ATTEND General Practice
DX: M25.552 Pain in left hip (principal); D68.59 Other primary thrombophilia; I10 Essential (primary) hypertension; F03.90 Unspecified dementia, unspecified severity, without behavioral disturbance, psychotic disturbance, mood disturbance, and anxiety; E78.5 Hyperlipidemia, unspecified; W18.30XA Fall on same level, unspecified, initial encounter; E11.65 Type 2 diabetes mellitus with hyperglycemia; F32.9 Major depressive disorder, single episode, unspecified; K21.9 Gastro-esophageal reflux disease without esophagitis; Z79.899 Other long term (current) drug therapy; Y93.89 Activity, other specified; Y92.129 Unspecified place in nursing home as the place of occurrence of the external cause; Y99.8 Other external cause status
CPT/HCPCS: 36415; 70450; 71045; 73502; 80048; 80053; 80305; 81003; 82948; 83036; 83605; 83690; 83735; 83880; 84100; 84134; 84443; 84484; 85025; 85610; 85730; 87040; 87081; 87086; 92610; 93005; 93925; 93970; 96361; 96374; 97110; 97116; 97161-GP; 97530; 99285; J0360; J1644; J1815; J7030; Q0092